=== PATIENT | female | born 1950 | race Caucasian/White ===

== ENCOUNTER → 2018-03-12 10:34 | Outpatient (CLI) | payer MEDICARE, SELFPAY | PROVIDERS: Family Provider Internal Medicine; PCP Internal Medicine; Visit Provider Clinical Nurse Specialist | DX: R00.2 Palpitations (principal) | CPT/HCPCS: 93225; 93226 ==

== ENCOUNTER → 2018-05-10 13:47 | Outpatient (CLI) | payer MEDICARE, SELFPAY | PROVIDERS: Family Provider Internal Medicine; PCP Internal Medicine; Visit Provider Internal Medicine Cardiovascular Disease | DX: I49.3 Ventricular premature depolarization (principal); R01.1 Cardiac murmur, unspecified | CPT/HCPCS: 93306 ==

== ENCOUNTER → 2019-10-28 09:45 | Outpatient (CLI) | payer MEDICARE, SELFPAY ==
--- NOTE | 2019-10-28 10:00 | VDLE_ITS ---
Reason For Study: Calf pain RIGHT LEFT CFV is compressible, spontaneous, phasic, GSV is normal. competent and demonstrates normal CFV is compressible, spontaneous, phasic, augmentation. competent, and demonstrates normal Procedure augmentation. Exam performed in department. FV is compressible, spontaneous, phasic, A preliminary report was called and/or faxed competent and demonstrates normal to Karon. augmentation. POP V is compressible, spontaneous, phasic, competent and demonstrates normal augmentation. T/P Trunk is compressible. PTV is compressible. LT PerV is compressible. Nonvascularized structure noted in the left popliteal fossa measuring approximently 0.75 x 1.01 x 3.54 cm. Interpretation Summary Deep veins of the left lower extremity are patent and compressible segmentally. There is no evidence of left lower extremity deep vein thrombosis. Valvular competence appears intact within the proximal deep venous system on the left . The left great saphenous vein appears patent and compressible segmentally. A non-vascular, hypoechoic structure is noted in the left popliteal space, measuring 0.75 cm x 1.01 cm x 3.54 cm. This probably represents a popliteal cyst. Clinical correlation is advised. Ordering Physician: BRENDEN MANZO Referring Physician: Sobeida Coates M.D. Performed By: Johana Khalil RVT
== END ==
PROVIDERS: PCP Internal Medicine
DX: M79.662 Pain in left lower leg (principal)
CPT/HCPCS: 93971

== ENCOUNTER → 2021-09-18 13:15 | Outpatient (CLI) | payer MEDICARE, SELFPAY | PROVIDERS: PCP Internal Medicine; Referring Provider Internal Medicine; Visit Provider Internal Medicine | DX: Z11.52 Encounter for screening for COVID-19 (principal) | CPT/HCPCS: 36415; 86769 ==

== ENCOUNTER 2024-05-21 19:40 | Emergency (ER) | payer MEDICARE, SELFPAY ==
[2024-05-21 19:41] VITALS: BP 153/79; PULSE 74; RESP 16; TEMP 36; O2SAT 100; BMI 17.8
--- NOTE | 2024-05-21 19:59 | EKG12_ITS ---
Test Reason : PALPITATIONS Blood Pressure : / mmHG Vent. Rate : 064 BPM Atrial Rate : 064 BPM P-R Int : 156 ms QRS Dur : 080 ms QT Int : 416 ms P-R-T Axes : 052 010 012 degrees QTc Int : 429 ms Normal sinus rhythm Normal ECG Confirmed by Osito Jarquin ([id number]), social media editor WENDY ANDREWS ([id number]) on 05/23/2024 10:30:54 AM Referred By: Confirmed By:Osito Jarquin
--- NOTE | 2024-05-21 20:18 | ED.VIS.CHEST ---
HPI History of Present Illness Chief Complaint: Palpitations [facility] Medical History Plantar fasciitis, bilateral Premature ventricular contraction Premature atrial contractions Hypertension Hyperlipidemia Palpitations Home Medications ?Medication ?Instructions ?Recorded ?Last Taken ?Type amlodipine 5 mg tablet 5 mg PO QDAY 05/04/18 Unknown History epinephrine 0.3 mg/0.3 mL 0.3 mg IM Q10-15M PRN 05/04/18 Unknown History injection, auto-injector (EpiPen) [id number] C-Mn 500 1 cap PO TID 05/04/18 Unknown History mg-400 mg capsule (Glucosamine Chondroitin Maximum Strength) lorazepam 1 mg tablet 1 mg PO BID 05/04/18 Unknown History pravastatin 10 mg tablet 10 mg PO QHS 05/04/18 Unknown History coenzyme Q10 100 mg capsule (Co 100 mg PO QDAY 05/06/18 Unknown History Q-10) Allergy/AdvReac Type Severity Reaction Status Date / Time aspirin Allergy Hives Verified 05/13/18 13:36 bee venom protein (honey bee) Allergy Anaphylaxis Verified 05/13/18 13:36 celery Allergy Anaphylaxis Verified 05/13/18 13:36 Penicillins Allergy Other Verified 05/13/18 13:36 lisinopril AdvReac Unknown Unknown Verified 05/13/18 13:36 Family History Father Heart disease Myocardial infarction, Onset Age: 50 Grandmother Hypertension Grandmother Diabetes Aunt Diabetes Surgical History History of toe surgery Social History (Updated 05/13/18 @ 16:[address] Moisés Lucas MD) Smoking Status: Never smoker alcohol intake: current details: occasional wine EXAM Physical Exam Const Vital Signs: 05/21/24 19:41 05/21/24 19:58 Temperature 96.8 F L Temperature Source Temporal Pulse Rate 74 Respiratory Rate 16 Respiratory Effort Normal Non-Labored Blood Pressure 153/79 H Blood Pressure Mean 103 Pulse Ox 100 Oxygen Delivery Method Room Air MDM MDM MDM Narrative Medical decision making narrative: HISTORY OF PRESENT ILLNESS: 73-year-old female presents with palpitations. Patient states he is on the treadmill which started noticing her heart beating abnormally. She has long history of palpitations with panic attacks. She notes did not take her labs plan for coming I did not want a massive symptoms. The patient further states she was on a treadmill when she started feeling her heart racing. Notes some shortness of breath as well. Denies any bleeding diathesis. Denies volume loss. Denies any chest pain. Notes compliance with home metoprolol The patient denies recent surgery in the last 4 weeks or immobilization in the last 3 days, denies previous diagnosis of DVT or PE, hemoptysis, unilateral leg swelling or malignancy with treatment the last 6 months or palliative. No estrogen use noted. REVIEW OF SYSTEMS: Pertinent positives: Palpitations Pertinent negatives: Chest pain, syncope PHYSICAL EXAM: Nursing triage notes reviewed, Vital signs reviewed Constitutional: please see mdm HENT: MMM Eyes: Pupils equal round and reactive to light, Extraocular muscles intact Neck: No stridor, no JVD, full neck ROM Lungs: Clear to auscultation, No wheezing or rales. No increased work of breathing, no conversational dyspnea, no accessory muscle use, no nasal flaring. No respiratory distress noted Heart: Regular rate and rhythm, +murmur. No rubs and No gallops, 2+ distal pulses (radial, femoral, posterior tibial) in all extremities Abdomen: Soft, there is no tenderness, rigidity, rebound or guarding, no obvious peritoneal signs, no palpable pulsatile abdominal masses, no auscultated abdominal bruit : No CVAT Extremities: No edema Neuro: No focal neurological deficits, cranial nerves II through XII intact, 5/5 strength in all extremities. Intact sensation to light touch in all extremities, 2+ reflexes bilateral patella tendons. Normal gait. No ataxia. Skin: No rash or lesions noted MEDICAL DECISION MAKING: Chief Complaint: Palpitations External records reviewed: Reviewed prior Holter monitor report from 2018 Factors affecting care: Hypertension, hyperlipidemia, palpitations, pewter atrial contraction. For ventricular contractions MDM Narrative: The patient was initially hemodynamically stable, afebrile and nontoxic-appearing. Exam without focal cardiopulmonary abnormalities I considered the following differential diagnosis: Anemia, electrolyte disturbance, ACS, dehydration I obtained a broad lab and imaging workup to further elucidate etiology of the patient complaints. ALL IMAGES (IF OBTAINED) HAVE BEEN PERSONALLY REVIEWED AND INTERPRETED BY MYSELF. EKG with normal sinus rhythm, normal axis, normal intervals, no obvious STEMI. CBC with no leukocytosis, no anemia or thrombocytopenia BMP with mild hyponatremia (replaced with normal saline), hypokalemia (replaced with p.o. potassium), no evidence of metabolic acidosis or endorgan hypoperfusion with normal bicarb and anion gap, no ZAINAB High-sensitivity troponin is negative, no evidence of myocardial ischemia x 2 Magnesium within normal limits The synthesis of the patient's history, physical exam, labs images suggest no acute life-limiting etiology specifically no signs of ACS, septic electrolyte abnormality, septic dehydration, difficult anemia, heart failure. Patient is appropriate for outpatient follow-up with cardiology. The patient and/or family, caregivers express understanding. The patient and/or family, caregivers agrees with the plan. Shared decision making: I will have a discussion with the patient and or visitors regarding risk/benefits of further testing or admission. They will be made aware of of the risk/benefits inherent in this decision they will be given the opportunity to voice understanding. Total critical care time today provided was at least 0 minutes. This excludes separately billable procedures. Critical care time (if documented) is secondary to the patient having high probability of clinically significant/life threatening deterioration in the patient's condition which required my urgent intervention. Impression: 1. Palpitations 2. History of PVCs Dispo: discharge This note was generated with [employer] dictation software. It may contain incorrect words, spelling, and punctuation that were not noted in review of the chart prior to signing. Lab Data Labs: Laboratory Results - last 24 hr 05/21/24 05/21/24 20:00 21:29 WBC 7.3 RBC 3.95 L Hgb 12.8 Hct 38.4 MCV 97.2 MCH 32.4 H MCHC 33.3 RDW Std Deviation 46.5 H RDW Coeff of Jonnie 13.0 Plt Count 222 MPV 9.7 Sodium 135 L Potassium 3.3 L Chloride 99 Carbon Dioxide 27.0 Anion Gap 9 BUN 15 Creatinine 0.61 Estim Creat Clear Calc 45.86 Est GFR (MDRD) Af Amer 124 Est GFR (MDRD) Non-Af 102 BUN/Creatinine Ratio 24.7 H Glucose 103 Calcium 9.2 Magnesium 2.3 Troponin I High Sens 5 6 Radiography Diagnostic Testing: Clinical Impression(s) from Imaging Studies Chest X-Ray 05/21/24 20:20 IMPRESSION: No acute radiographic abnormalities. Electronically Signed: Antonio Barrera MD at 20:42 EDT , Discharge Plan Triage Chief Complaint: Palpitations ED Provider: Magdy Najera Dx/Rx/DC Orders Prescriptions: No Action coenzyme Q10 [Co Q-10] 100 mg capsule 100 mg PO QDAY amlodipine 5 mg tablet 5 mg PO QDAY epinephrine [EpiPen] 0.3 mg/0.3 mL auto-injector 0.3 mg IM Q10-15M PRN [id number] C-Mn [Glucosamine Chondroitin MaxStr] 500-400 mg capsule 1 cap PO TID lorazepam 1 mg tablet 1 mg PO BID pravastatin 10 mg tablet 10 mg PO QHS Primary Care Provider: Sobeida Coates Referrals: Sobeida Coates MD [Primary Care Provider] - Print Language: Kinyarwanda
--- NOTE | 2024-05-21 20:20 | RAD_ITS ---
INDICATION: Palpitations EXAMINATION/TECHNIQUE: X-RAY - XR Chest 1 View COMPARISON: None. FINDINGS: The lungs are clear. Tortuous and calcified thoracic aorta. The heart is not enlarged. No pleural effusion or pneumothorax. Degenerative changes of the thoracic spine. RAD/Chest 1 View (Portable) IMPRESSION: No acute radiographic abnormalities. Electronically Signed: Antonio Barrera MD at 20:42 EDT ,
[2024-05-21 20:26] LABS: Hematocrit 38.4 % (37-47); Hemoglobin 12.8 g/dL (12.0-15.0); Mean Corp Hgb Conc 33.3 g/dL (32-36); Mean Corpuscular Hgb 32.4 pg (27.0-32.0); Mean Corpuscular Volume 97.2 fL (81-99); Mean Platelet Vol. 9.7 fl (6.2-12.0); Platelet Count 222 K/mm3 (150-450); RBC Distribution Width SD 46.5 fl (35.1-43.9); Red Blood Count 3.95 M/mm3 (4.2-5.4); White Blood Count 7.3 K/mm3 (4.4-11.0)
--- NOTE | 2024-05-21 20:39 | ED.RN ---
Pt stated I don't like to take meds, I am scared of IV meds. Can I take my ativan I have in my purse? This RN asked dr Najera, Dr Najera said yes. This RN witnessed the pt take 1/2 tablet of 5 mg ativan, making the dosage 2.5mg. Dr Najera is aware.
[2024-05-21 20:49] LABS: Anion Gap 9 (5-15); BUN 15 mg/dL (7-18); BUN/Creat Ratio 24.7 RATIO (10-20); Calcium,Total 9.2 mg/dL (8.5-10.1); Chloride 99 mmol/L (98-107); Creatinine, Serum 0.61 mg/dL (0.55-1.02); EST Glomerular Filtration Rate 102 mL/min (>60); Est Glom Filt Rate - Afr Amer 124 mL/min (>60); Estimated Creatinine Clearance 45.86 ml/min; Glucose 103 mg/dL (74-106); Magnesium 2.3 mg/dL (1.6-2.6); Potassium 3.3 mmol/L (3.5-5.1); Sodium Level 135 mmol/L (136-145); Troponin-I HS 5 pg/mL (3.0-54.0)
[2024-05-21] MEDS: Potassium Chloride Oral Tablet 20 MEQ 40 MEQ PO (21:23)
[2024-05-21 21:41] VITALS: PULSE 68; RESP 15; O2SAT 98
[2024-05-21 21:58] LABS: Troponin-I HS 6 pg/mL (3.0-54.0)
[2024-05-21 22:29] VITALS: BP 153/79; PULSE 68; RESP 15; TEMP 36.2; O2SAT 99
== END 2024-05-21 22:50 | disposition home or self-care (01) ==
PROVIDERS: Emergency Provider Emergency Medicine; PCP Internal Medicine; Visit Provider Emergency Medicine
DX: R00.2 Palpitations (principal)
CPT/HCPCS: 71045; 80048; 83735; 84484; 85027; 93005; 99284; A4216

== ENCOUNTER 2025-09-08 10:37 | Emergency (ER) | payer MEDICARE, SELFPAY ==
[2025-09-08 10:37] VITALS: BP 137/71; PULSE 66; RESP 16; TEMP 36.4; O2SAT 99; BMI 18.6
--- NOTE | 2025-09-08 11:22 | ED.VIS.GI ---
HPI HPI - GI History of Present Illness Chief Complaint: Abd Pain Informant: patient Narrative Narrative: Patient is a 74-year-old female with no significant PMHx presenting with constipation and anal pain. - Symptoms began yesterday afternoon with mild discomfort, worsening this morning. - Reports a sensation of needing to defecate but unable to do so, describing it as right there but not passing. - Denies abdominal pain, emesis, or hematochezia. - Last normal bowel movement was 2d ago; typically has bowel movements every other day on avg. - No major history of constipation issues. - No previous abdominal surgeries. Patient states her main reason for coming today was that she was concerned after reading some things on the Internet that she could have a bowel obstruction. [facility] Medical History (Updated 09/08/25 @ 12:[address] Amando Anderson MD) Plantar fasciitis, bilateral Premature ventricular contraction Premature atrial contractions Hypertension Hyperlipidemia Palpitations Home Medications ?Medication ?Instructions ?Recorded ?Last Taken ?Type amlodipine 5 mg tablet 5 mg PO QDAY 05/04/18 Unknown History epinephrine 0.3 mg/0.3 mL 0.3 mg IM Q10-15M PRN 05/04/18 Unknown History injection, auto-injector (EpiPen) [id number] C-Mn 500 1 cap PO TID 05/04/18 Unknown History mg-400 mg capsule (Glucosamine Chondroitin Maximum Strength) lorazepam 1 mg tablet 1 mg PO BID 05/04/18 Unknown History pravastatin 10 mg tablet 10 mg PO QHS 05/04/18 Unknown History coenzyme Q10 100 mg capsule (Co 100 mg PO QDAY 05/06/18 Unknown History Q-10) Allergy/AdvReac Type Severity Reaction Status Date / Time aspirin Allergy Hives Verified 09/08/25 10:39 bee venom protein (honey bee) Allergy Anaphylaxis Verified 09/08/25 10:39 celery Allergy Anaphylaxis Verified 09/08/25 10:39 Penicillins Allergy Other Verified 09/08/25 10:39 lisinopril AdvReac Unknown Unknown Verified 09/08/25 10:39 Family History Father Heart disease Myocardial infarction, Onset Age: 50 Grandmother Hypertension Grandmother Diabetes Aunt Diabetes Surgical History History of toe surgery Social History (Updated 05/13/18 @ 16:[address] Moisés Lucas MD) Smoking Status: Never smoker alcohol intake: current details: occasional wine ROS ROS ED Constitutional Constitutional ED: Denies chills or fever(s) Eyes Eyes: Denies change in vision or diplopia ENT ENT ED: Denies rhinorrhea or sore throat Cardiovascular Cardiovascular: Denies chest pain or palpitations Respiratory/Chest Respiratory/Chest: Denies cough or dyspnea Gastrointestinal Gastrointestinal: Reports constipation; Denies abdominal pain, diarrhea, hematemesis, hematochezia, melena, nausea or vomiting Genitourinary Genitourinary ED: Denies dysuria or hematuria Musculoskeletal Musculoskeletal: Denies back pain or neck pain Integumentary Denies abscess or rash Neurologic Neurologic: Denies headache(s), paresthesias or weakness Psychiatric Psychiatric: Denies anxiety or suicidal thoughts EXAM Physical Exam Const Vital Signs: 09/08/25 10:37 Temperature 97.5 F L Temperature Source Oral Pulse Rate 66 Respiratory Rate 16 Blood Pressure 137/71 H Blood Pressure Mean 93 Pulse Ox 99 Oxygen Delivery Method Room Air Positive well nourished and well developed General Appearance ED: well developed and NAD HEENT Reports moist mucous membranes normocephalic and atraumatic Eyes PERRL and EOMs intact bilaterally Neck full ROM and supple Resp normal respiratory effort and clear to auscultation bilaterally Cardio regular rate, regular rhythm and no murmurs GI non-tender and non-distended Auscultation: normoactive bowel sounds Palpation: soft Back/Spine no CVA tenderness General Back: other FROM Extremity normal to inspection General Extremety ED: Negative for edema, pulses abnormal or tenderness General Extremity: Negative for edema or pulses abnormal Neuro oriented x3, CN's II-XII intact bilaterally and no sensory deficits noted Sensorium / Orientation: awake and alert Motor Exam: strength 5/5 throughout Skin no rashes or lesions noted and no wounds MDM MDM MDM Narrative Medical decision making narrative: Assessment: The patient is a 74-year-old female presenting for severe constipation with associated fecal impaction and anal pressure since yesterday, worse this morning. Given absence of abdominal pain, vomiting, prior abdominal surgery, or malignancy, acute bowel obstruction is unlikely. Presentation is most consistent with fecal impaction causing symptomatic constipation; after manual disimpaction she obtained relief without bleeding or residual pain. Plan: - Manual rectal disimpaction performed in ED with nursing assistance; stool evacuated, patient symptomatically improved - Provided education on home stool-softening regimens and oral laxative options - Reviewed red-flag return precautions and reasons to seek care (pain, bleeding, vomiting, inability to pass stool) - Discharged home in improved condition Reevaluations: - Patient re-assessed post-disimpaction: had complete bowel movement, no bleeding, pain resolved, comfortable and ready for discharge Portions of this note were generated using voice recognition software ([employer]). I have reviewed the contents and every effort has been made to ensure accuracy; however, inadvertent errors in grammar, spelling, punctuation, or word choice may occur, that were not noted before signing the document and should not alter the intended clinical meaning. Discharge Plan Triage Chief Complaint: Abd Pain ED Provider: Amando Anderson Dx/Rx/DC Orders Clinical Impression: Fecal impaction in rectum, Constipation Instructions: ED Constipation (Adult), ED Fecal Impaction, Treated Prescriptions: No Action coenzyme Q10 [Co Q-10] 100 mg capsule 100 mg PO QDAY amlodipine 5 mg tablet 5 mg PO QDAY epinephrine [EpiPen] 0.3 mg/0.3 mL auto-injector 0.3 mg IM Q10-15M PRN [id number] C-Mn [Glucosamine Chondroitin MaxStr] 500-400 mg capsule 1 cap PO TID lorazepam 1 mg tablet 1 mg PO BID pravastatin 10 mg tablet 10 mg PO QHS Primary Care Provider: Sobeida Coates Referrals: Sobeida Coates MD [Primary Care Provider, Internal Medicine] - As Needed Activity Restrictions/Additional Instructions: - You may use [id number] stool softeners or oral laxative solutions to help keep your stools soft (these can take several hours to work). - If some stool moves but you still feel blocked, an enema can deliver fluid directly to loosen stool more quickly. - Return to the emergency department if constipation returns or you cannot have a bowel movement after trying these measures, or if you notice any rectal bleeding or severe anal pain. Print Language: Yakut Disposition Disposition: Home, Self Care
[2025-09-08 12:41] VITALS: BP 116/67; PULSE 64; RESP 16; TEMP 36.4; O2SAT 99
== END 2025-09-08 12:42 | disposition home or self-care (01) ==
PROVIDERS: Emergency Provider Emergency Medicine; PCP Internal Medicine; Visit Provider Emergency Medicine
DX: K56.41 Fecal impaction (principal)
CPT/HCPCS: 99284; A4216